=== PATIENT | male | born 1960 | race Caucasian/White ===

== ENCOUNTER 2019-06-11 07:44 | Emergency (ER) | payer SELFPAY ==
[~2019-06-11] VITALS: Ht 170.2 cm; Wt 65.8 kg
[2019-06-11 07:47] VITALS: Ht 170.2 cm; Wt 65.8 kg
[2019-06-11 09:35] VITALS: BP 110/70
== END 2019-06-11 09:35 | disposition home or self-care (01) ==
LOC: ED 07:44
DX: S22.31XA Fracture of one rib, right side, initial encounter for closed fracture (principal); W18.30XA Fall on same level, unspecified, initial encounter; Y93.89 Activity, other specified; Y92.89 Other specified places as the place of occurrence of the external cause; Y99.8 Other external cause status

== ENCOUNTER 2019-06-17 10:38 | Emergency (ER) | payer SELFPAY ==
[~2019-06-17] VITALS: Ht 170.2 cm; Wt 66.2 kg
[2019-06-17 10:44] VITALS: BP 141/62; Ht 170.2 cm; Wt 66.2 kg
== END 2019-06-17 11:33 | disposition home or self-care (01) ==
LOC: ED 10:38
DX: S22.31XA Fracture of one rib, right side, initial encounter for closed fracture (principal); F17.210 Nicotine dependence, cigarettes, uncomplicated; Z76.0 Encounter for issue of repeat prescription; W19.XXXA Unspecified fall, initial encounter; Y93.89 Activity, other specified; Y92.89 Other specified places as the place of occurrence of the external cause; Y99.8 Other external cause status
CPT/HCPCS: 99406